=== PATIENT | male | born 1950 | race Caucasian/White ===

== ENCOUNTER 2023-05-05 09:53 | Outpatient (CLI) | payer MEDICARE ==
[2023-05-05] MEDS ORDERED: Magnevist 469MG/ML 20 ML VIAL ONE (10:15)
== END 2023-05-05 09:54 | disposition home or self-care (01) ==
LOC: CSHMRI 09:53
PROVIDERS: ATTEND Urology
DX: C61 Malignant neoplasm of prostate (principal); N40.2 Nodular prostate without lower urinary tract symptoms
CPT/HCPCS: 72197; 82565